=== PATIENT | female | born 1970 | race Caucasian/White ===

== ENCOUNTER → 2016-10-29 | Outpatient (CLI) | payer OTHER ==
[~2016-10-29] MED LIST: AMOXICILLIN500 M2 PO; AUGMENTIN 875 M1 TAB PO; KEFLEX500 MG PO; NAPROSYN500 MG PO; PENICILLIN-VK500 MG PO; VICODIN 5/500 505 MG PO; VICODIN 500 MG-1 TAB PO
--- NOTE | ~2016-10-29 | PF ---
[place], [place] PULMONARY FUNCTION TEST [facility]: [id number] UNIT #: [id number] ROOM: DOCTOR: GAEL PENA MD,TERI BIRTHDATE: [birth year] DOS: 10/30/2016 ORDERED BY: Bethany Carter. HISTORY: The patient noted 45-year-old female, height of 63 inches, weight of 155 pounds, presented for complete pulmonary function testing for assessment of symptoms of dyspnea with exertion and frequent wheezing, nonproductive cough. Active tobacco use noted 1 pack of cigarettes per day for past 30 years. SPIROMETRY: Noted as FVC of 2.51 liters, 72% predicted value. It was noted mildly decreased. No significant changes occurred postbronchodilator test. The FEV1 was noted 1.71 liters, 61% predicted value, moderately decreased with 15% partial improvement occurred postbronchodilator test. The ratio of FEV1/FVC recorded as 68%. The flow volume loop was suggestive of obstructive airway pattern. The lung volumes, thoracic gas volume recorded 98%, residual volume 146%. RV/TLC ratio noted at 151%. Lung volumes suggestive of moderate air trapping secondary to obstructive lung disease. The lung diffusion recorded at 55%, moderately decreased without correction of carbon monoxide and hemoglobin values. The patient's airway resistance and specific conductance were noted normal. FINAL IMPRESSION: The test was noted with findings suggestive of moderate chronic obstructive pulmonary disease with airtrapping. TERI MAYO MD CM:PFREPORT:PULMONARY FUNCTION TEST [id number] TERI PENA MD
== END | disposition home or self-care (01) ==
LOC: CP 12:28
DX: R06.09 Other forms of dyspnea (principal); R10.11 Right upper quadrant pain; R06.2 Wheezing; R05 Cough; Z72.0 Tobacco use

== ENCOUNTER → 2016-11-02 | Outpatient (CLI) | payer OTHER | END | disposition home or self-care (01) | LOC: US 04:07 | DX: Z12.31 Encounter for screening mammogram for malignant neoplasm of breast (principal); K76.0 Fatty (change of) liver, not elsewhere classified; R10.11 Right upper quadrant pain; R06.09 Other forms of dyspnea ==

== ENCOUNTER → 2016-12-06 | Outpatient (CLI) | payer OTHER ==
[2016-12-06 15:16] LABS: BASO % 0.5 % (0.0-1.0); EOS # 0.2 10*3/uL (0.0-0.4); EOS % 2.2 % (1.0-4.0); HEMATOCRIT 36.3 % (37.0-47.0); HEMOGLOBIN 11.1 g/dl (12.0-16.0); LYMPH # 2.7 10*3/uL (1.3-4.4); LYMPH % 34.1 % (27.0-41.0); MEAN CELL VOLUME 80.8 fl (81.0-99.0); MEAN CORPUSCULAR HGB 24.7 pg (27.0-31.0); MEAN CORPUSCULAR HGB CONC 30.6 g/dl (33.0-37.0); MEAN PLATELET VOLUME 9.8 fl (9.6-12.3); MONO # 0.8 10*3/uL (0.1-1.0); MONO % 9.7 % (3.0-9.0); NEUT # 4.2 10*3/uL (2.3-7.9); NEUT % 53.1 % (47.0-73.0); PLATELET COUNT AUTOMATED 250 10*3/uL (130-400); RED BLOOD COUNT 4.49 10*6/uL (4.10-5.10); RED CELL DISTRI WIDTH 17.4 % (0-14.5); WHITE BLOOD COUNT 7.9 10*3/uL (4.8-10.8)
[2016-12-06 15:43] LABS: ALBUMIN 3.5 gm/dl (3.1-4.5); ALKALINE PHOSPHATASE 47 U/L (45-117); BILIRUBIN, TOTAL 0.2 mg/dl (0.2-1.0); BUN 10 mg/dl (7-24); CARBON DIOXIDE 31 mmol/L (21-32); CHLORIDE 106 mmol/L (98-107); EST GLOM FILT AFRICAN AMERICAN > 60 ml/min; FREE T4 0.89 ng/dl (0.76-1.46); GLUCOSE 106 mg/dL (65-99); POTASSIUM 4.1 mmol/L (3.5-5.1); SGOT/AST 11 IU/L (3-35); SGPT/ALT 17 U/L (12-78); SODIUM 141 mmol/L (136-145); TOTAL PROTEIN 6.7 gm/dL (6.4-8.2)
== END | disposition home or self-care (01) ==
LOC: LAB 14:23
PROVIDERS: Psychiatry & Neurology Psychiatry
DX: R53.83 Other fatigue (principal)

== ENCOUNTER 2017-05-24 17:17 | Emergency (ER) | payer OTHER ==
[~2017-05-24] VITALS: Ht 160 cm; Wt 68.0 kg
[2017-05-24 17:37] VITALS: BP 131/73
[2017-05-24 18:28] LABS: BASO % 0.1 % (0.0-1.0); EOS % 0.1 % (1.0-4.0); HEMATOCRIT 36.7 % (37.0-47.0); HEMOGLOBIN 11.9 g/dl (12.0-16.0); LYMPH % 5.6 % (27.0-41.0); MEAN CELL VOLUME 84.2 fl (81.0-99.0); MEAN CORPUSCULAR HGB 27.3 pg (27.0-31.0); MEAN CORPUSCULAR HGB CONC 32.4 g/dl (33.0-37.0); MEAN PLATELET VOLUME 10.3 fl (9.6-12.3); MONO % 5.6 % (3.0-9.0); NEUT # 15.6 10*3/uL (2.3-7.9); PLATELET COUNT AUTOMATED 198 10*3/uL (130-400); RED BLOOD COUNT 4.36 10*6/uL (4.10-5.10); RED CELL DISTRI WIDTH 16.7 % (0-14.5); WHITE BLOOD COUNT 17.8 10*3/uL (4.8-10.8)
[2017-05-24 18:43] LABS: ALBUMIN 3.4 gm/dl (3.1-4.5); ALKALINE PHOSPHATASE 60 U/L (45-117); BUN 5 mg/dl (7-24); CHLORIDE 102 mmol/L (98-107); CREATININE 0.81 mg/dL (0.55-1.02); LIPASE 60 U/L (73-393); POTASSIUM 3.3 mmol/L (3.5-5.1); SGOT/AST 11 IU/L (3-35); SGPT/ALT 17 U/L (12-78); SODIUM 135 mmol/L (136-145); TOTAL PROTEIN 7.3 gm/dL (6.4-8.2)
[2017-05-24] MEDS ORDERED: FLAGYL500 MG PO (20:29)
[2017-05-24] MEDS ORDERED: CIPRO500 MG PO (20:29)
== END 2017-05-24 20:36 | disposition left against medical advice (07) ==
LOC: ED 17:17
PROVIDERS: Physician Assistant
DX: A41.9 Sepsis, unspecified organism (principal); K57.92 Diverticulitis of intestine, part unspecified, without perforation or abscess without bleeding; F17.200 Nicotine dependence, unspecified, uncomplicated; Z88.6 Allergy status to analgesic agent; Z88.8 Allergy status to other drugs, medicaments and biological substances

== ENCOUNTER 2018-05-17 14:19 | Emergency (ER) | payer OTHER ==
[~2018-05-17] VITALS: Ht 160 cm; Wt 75.7 kg
[~2018-05-17 14:19] MED LIST changes: +CIPRO500 MG PO; +FLAGYL500 MG PO
[2018-05-17 14:23] VITALS: BP 150/72
[2018-05-17] MEDS ORDERED: PREDNISONE10 MG PO (14:31)
== END 2018-05-17 14:51 | disposition home or self-care (01) ==
LOC: ED 14:19
DX: M77.8 Other enthesopathies, not elsewhere classified (principal); R03.0 Elevated blood-pressure reading, without diagnosis of hypertension; Z88.6 Allergy status to analgesic agent; Z88.8 Allergy status to other drugs, medicaments and biological substances; Z98.890 Other specified postprocedural states; Z98.51 Tubal ligation status

== ENCOUNTER 2020-01-12 09:05 | Observation (INO) | payer OTHER ==
[~2020-01-12] VITALS: Ht 160 cm; Wt 69.0 kg
[~2020-01-12 09:05] MED LIST changes: +PREDNISONE10 MG PO
[2020-01-12 09:11] VITALS: BP 152/82
--- NOTE | 2020-01-12 09:31 | NUR ---
THE PATIENT WAS GIVEN A SPECIMAN CUP FOR A URINE
--- NOTE | 2020-01-12 09:40 | NUR ---
IV RAC INFILTRATE. DC'D AND STARTED ONE IN LAC.
[2020-01-12 09:47] LABS: BASO # 0.1 10*3/uL (0.0-0.1); BASO % 0.6 % (0.0-1.0); EOS # 0.1 10*3/uL (0.0-0.4); HEMATOCRIT 40.7 % (37.0-47.0); LYMPH # 1.4 10*3/uL (1.3-4.4); LYMPH % 11.7 % (27.0-41.0); MEAN CELL VOLUME 82.6 fl (81.0-99.0); MEAN CORPUSCULAR HGB 25.8 pg (27.0-31.0); MEAN CORPUSCULAR HGB CONC 31.2 g/dl (33.0-37.0); MEAN PLATELET VOLUME 9.9 fl (9.6-12.3); MONO # 0.7 10*3/uL (0.1-1.0); MONO % 5.8 % (3.0-9.0); NEUT # 9.3 10*3/uL (2.3-7.9); NEUT % 80.5 % (47.0-73.0); PLATELET COUNT AUTOMATED 221 10*3/uL (130-400); RED BLOOD COUNT 4.93 10*6/uL (4.10-5.10); RED CELL DISTRI WIDTH 18.5 % (0-14.5); WHITE BLOOD COUNT 11.6 10*3/uL (4.8-10.8)
[2020-01-12 09:58] LABS: ACT PARTIAL THROMBO TIME 27.1 SECONDS (20.0-32.1); INTERNATIONAL NORM RATIO 0.9 (2.0-3.5)
[2020-01-12 10:05] LABS: ALBUMIN 3.7 gm/dl (3.1-4.5); BUN 13 mg/dl (7-24); CHLORIDE 107 mmol/L (98-107); LIPASE 60 U/L (73-393); POTASSIUM 3.6 mmol/L (3.5-5.1); SGOT/AST 11 IU/L (3-35); SGPT/ALT 20 U/L (12-78); SODIUM 140 mmol/L (136-145); TOTAL PROTEIN 7.2 gm/dL (6.4-8.2)
[2020-01-12 10:06] LABS: ALKALINE PHOSPHATASE 42 U/L (45-117)
[2020-01-12 10:16] LABS: TROPONIN I < 0.015 ng/ml (<0.045)
[2020-01-12 10:32] LABS: BILIRUBIN NEGATIVE (NEGATIVE); BLOOD NEGATIVE (NEGATIVE); CLARITY CLEAR (CLEAR); COLOR YELLOW (YELLOW); GLUCOSE NEGATIVE (NEGATIVE); KETONE 2+ (NEGATIVE); SPECIFIC GRAVITY 1.015 (1.005-1.030)
[2020-01-12 10:33] LABS: BACTERIA 2+; LEUKO ESTERASE NEGATIVE (NEGATIVE); MUCOUS TRACE; NITRITE NEGATIVE (NEGATIVE); UROBILINOGEN 0.2 E.U./dl (0.2-1.0)
--- NOTE | 2020-01-12 10:34 | NUR ---
THE PT WENT TO CT VIA CART
[2020-01-12 10:58] VITALS: BP 133/63
--- NOTE | 2020-01-12 11:25 | NUR ---
THIS NURSE ADJUSTED THE PATIENTS BED. NO NEW VOICED C/O. THE CALL LIGHT IS ATTACHED TO THE BED BESIDE THE PATIENT
--- NOTE | 2020-01-12 11:48 | NUR ---
I LET THE PATIENT KNOW THAT HER RESULTS ARE BACK AND THAT HER CAREGIVER WILL BE IN TO TALK WITH HER SOON. VERBAL UNDERSTANDING NOTED
[2020-01-12 12:17] VITALS: BP 141/76
[2020-01-12 13:29] VITALS: BP 117/67
[2020-01-12 16:00] VITALS: BP 126/67
--- NOTE | 2020-01-12 16:42 | NUR ---
Time: 1300 A 49 year old FEMALE admitted to 5E under services of [place] DO. Pt. arrived via wheel chair from ER. Chief complaint: ABDOMINAL PAIN. PT CAME TO THE UNIT WITH ONLY COMPLAINTS OF ABDOMINAL TENDERNESS AND WANTING TO HAVING SOMETHING TO DRINK. PT'S MEDICATION REQ WAS COMPLETED AND UP TO DATE. PT HAD NO WOUNDS AND NO OTHER COMPLAINTS AT THIS TIME. INITIAL ASSESSMENT WAS COMPLETED. ADMISSION ORDERS WERE ALREADY PLACED AND I DID NOT HAVE TO CALL THE ATTENDING PHYSICIAN TO OBTAIN ANY NEW ORDERS. ANN LOPEZ
[2020-01-12 20:00] VITALS: BP 134/69
--- NOTE | 2020-01-12 20:00 | NUR ---
MEDICATED WITH A GI COCKTAIL PER PT'S REQUEST FOR SOMETHING TO COAT HER STOMACH & M.D. ORDERS. IV FLUIDS INFUSING ORDERED. CALL LIGHT WITHIN REACH.
--- NOTE | 2020-01-12 21:00 | NUR ---
STATES GI COCKTAIL DID NOT HELP. HAD EMESIS.
--- NOTE | 2020-01-12 22:48 | NUR ---
MEDICATED WITH ZOFRAN FOR NAUSEA/VOMITING.
--- NOTE | 2020-01-12 23:54 | NUR ---
PATIENT IS AAOX3. ASSESSMENT IS COMPLETE WITH EASY AND REGULAR RESPERS ON ROOM AIR. PATIENT C/O SEVERE ABDOMINAL PAIN AND NAUSEA. PRN ZOFRAN NOT DUE YET, PRN MORPHINE GIVEN. PATIENT HAD EMESIS IN TRASH CAN WITH A RED COLOR. "PATIENT STATES ONLY THING ON MY STOMACH IS RED JELLO AND WATER, THEY HAVE ME ON THAT CLEAR LIQUID DIET." WILL CONTINUE TO MONITOR, SEE INTERVENTION SCREEN.
[2020-01-13] VITALS: BP 142/70
--- NOTE | 2020-01-13 00:07 | NUR ---
PRN MORPHINE EFFECTIVE, PATIENT APPEARS TO BE SLEEPING WITH EASY AND REGULAR RESPERS ON ROOM AIR. CALL LIGHT IS WITHIN REACH.
--- NOTE | 2020-01-13 00:12 | NUR ---
SPOKE WITH DR. DOMINIQUE ABOUT PATIENT EMESIS REQUESTED INCREASE OF ZOFRAN FREQUENCY. SEE NEW ORDERS.
--- NOTE | 2020-01-13 02:59 | NUR ---
CHART CHECK COMPLETE.
--- NOTE | 2020-01-13 03:24 | NUR ---
PATIENT PUT DUMPCART DRIVER LIGHT BY MISTAKE. PATIENT STATES "I HAVE FELT BETTER THAN I HAVE IN A WHILE. IM GOING TO TRY AND GET SOME MORE SLEEP." BED IS LOW, LOCKED, AND CALL LIGHT IS WITHIN REACH.
--- NOTE | 2020-01-13 05:43 | NUR ---
PRN ZOFRAN GIVEN PER ORDER. CALL LIGHT IS WITHIN REACH, WILL MONITOR EFFECT.
[2020-01-13 06:44] LABS: BASO % 0.4 % (0.0-1.0); EOS # 0.1 10*3/uL (0.0-0.4); EOS % 0.6 % (1.0-4.0); HEMATOCRIT 34.2 % (37.0-47.0); LYMPH # 1.8 10*3/uL (1.3-4.4); LYMPH % 21.7 % (27.0-41.0); MEAN CELL VOLUME 82.4 fl (81.0-99.0); MEAN CORPUSCULAR HGB 25.5 pg (27.0-31.0); MONO # 0.6 10*3/uL (0.1-1.0); NEUT # 5.7 10*3/uL (2.3-7.9); NEUT % 69.9 % (47.0-73.0); PLATELET COUNT AUTOMATED 192 10*3/uL (130-400); RED BLOOD COUNT 4.15 10*6/uL (4.10-5.10); RED CELL DISTRI WIDTH 18.3 % (0-14.5); WHITE BLOOD COUNT 8.2 10*3/uL (4.8-10.8)
[2020-01-13 07:21] LABS: CHLORIDE 109 mmol/L (98-107); POTASSIUM 3.4 mmol/L (3.5-5.1); SODIUM 139 mmol/L (136-145)
--- NOTE | 2020-01-13 07:27 | NUR ---
24 HR chart check completed.
[2020-01-13 07:35] LABS: ALBUMIN 2.9 gm/dl (3.1-4.5); ALKALINE PHOSPHATASE 37 U/L (45-117); BUN 5 mg/dl (7-24); CHOLESTEROL 109 mg/dL (<200); CREATININE 0.55 mg/dL (0.55-1.02); FREE T4 1.01 ng/dl (0.76-1.46); HDL CHOLESTEROL 58 mg/dl (40-60); LDL CHOLESTEROL 38 mg/dL (9-159); SGOT/AST 9 IU/L (3-35); SGPT/ALT 17 U/L (12-78); TOTAL PROTEIN 5.7 gm/dL (6.4-8.2); TRIGLYCERIDES 64 mg/dl (<150); VLDL CHOLESTEROL 13 mg/dL (6-40)
[2020-01-13 08:00] VITALS: BP 118/64; BP 146/84
[2020-01-13 08:58] LABS: VITAMIN D, 25-HYDROXY 27.2 ng/mL (30-100)
--- NOTE | 2020-01-13 09:00 | NUR ---
Integrated Marketing Manager in to talk to patient. Patient states lives at home with margarita and daughter. There are no steps in the home. Physician: none at present [facility]: none Patient's level of ADLs: INDEPENDENT Patient has working utilities: all working DME: none Follow-up physician's appointment after d/c: will be made by hospitalist nurse director up discharge with resident clinic Does patient want to access PORTAL?: no Discharge plan discussed with patient, she states she lives at home with margarita and daughter, she is independent in adls and ambulation, she is currently laid off from her job, she drives, she stated she will return home when discharged. discussed with her not having a regular doctor and she stated she would like an appointment with the resident clinic, educated her this will be made by hospitalist nurse director upon discharge, she states when discharged her fironal will transport her home, patient denies any home needs at this time. SHERI MCPHERSON
[2020-01-13] MEDS ORDERED: NICOTINE PATCH1 EAC2 TD (11:08)
[2020-01-13] MEDS ORDERED: PROTONIX TR40 M1 PO (11:08)
[2020-01-13 12:00] VITALS: BP 108/67
--- NOTE | 2020-01-13 12:41 | NUR ---
Discharge instructions reviewed with patient/family. Patient receptive and verbalizes understanding. Follow-up care arranged. Written instructions given to patient/family. PT WAS MEDSURG. IV WAS REMOVED. ANN LOPEZ
== END 2020-01-13 12:41 | disposition home or self-care (01) ==
LOC: ED 09:05 → EDHOLD 11:59 → 5E 11:59
PROVIDERS: Nurse Practitioner Family; Registered Nurse; ADMIT Internal Medicine
DX: A08.4 Viral intestinal infection, unspecified (principal); K52.9 Noninfective gastroenteritis and colitis, unspecified; B34.9 Viral infection, unspecified; D72.829 Elevated white blood cell count, unspecified; R11.2 Nausea with vomiting, unspecified; Z23 Encounter for immunization

== ENCOUNTER → 2020-07-28 | Outpatient (CLI) | payer OTHER ==
[~2020-07-28] MED LIST changes: +NICOTINE PATCH1 EAC2 TD; +PROTONIX TR40 M1 PO
== END | disposition home or self-care (01) ==
LOC: COVID19 10:31
PROVIDERS: ATTEND Hospitalist
DX: U07.1 COVID-19 (principal)

== ENCOUNTER 2020-08-17 13:53 | Emergency (ER) | payer OTHER ==
[~2020-08-17] VITALS: Wt 68.0 kg
[2020-08-17 14:08] VITALS: BP 149/70
[2020-08-17 14:31] LABS: BASO # 0.1 10*3/uL (0.0-0.1); EOS # 0.2 10*3/uL (0.0-0.4); HEMATOCRIT 35.7 % (37.0-47.0); LYMPH # 1.9 10*3/uL (1.3-4.4); LYMPH % 37.1 % (27.0-41.0); MEAN CELL VOLUME 82.1 fl (81.0-99.0); MEAN CORPUSCULAR HGB 25.3 pg (27.0-31.0); MEAN CORPUSCULAR HGB CONC 30.8 g/dl (33.0-37.0); MEAN PLATELET VOLUME 9.3 fl (9.6-12.3); MONO # 0.6 10*3/uL (0.1-1.0); MONO % 12.6 % (3.0-9.0); NEUT # 2.3 10*3/uL (2.3-7.9); NEUT % 46.3 % (47.0-73.0); PLATELET COUNT AUTOMATED 242 10*3/uL (130-400); RED BLOOD COUNT 4.35 10*6/uL (4.10-5.10)
[2020-08-17 14:43] LABS: ACT PARTIAL THROMBO TIME 26.8 SECONDS (20.0-32.1); INTERNATIONAL NORM RATIO 0.9 (2.0-3.5)
[2020-08-17 14:56] LABS: ALBUMIN 3.6 gm/dl (3.1-4.5); ALKALINE PHOSPHATASE 53 U/L (45-117); BUN 10 mg/dl (7-24); CHLORIDE 107 mmol/L (98-107); CREATININE 0.77 mg/dL (0.55-1.02); LIPASE 91 U/L (73-393); POTASSIUM 3.7 mmol/L (3.5-5.1); SGOT/AST 11 IU/L (3-35); SGPT/ALT 21 U/L (12-78); SODIUM 138 mmol/L (136-145); TOTAL PROTEIN 7.2 gm/dL (6.4-8.2)
[2020-08-17 14:58] LABS: TROPONIN I < 0.015 ng/ml (<0.045)
[2020-08-17] MEDS ORDERED: PREDNISONE50 MG PO (17:15)
== END 2020-08-17 17:20 | disposition home or self-care (01) ==
LOC: ED 13:53
PROVIDERS: Emergency Medicine
DX: J44.1 Chronic obstructive pulmonary disease with (acute) exacerbation (principal); Z88.6 Allergy status to analgesic agent; Z88.8 Allergy status to other drugs, medicaments and biological substances

== ENCOUNTER 2021-03-24 11:57 | Emergency (ER) | payer OTHER ==
[~2021-03-24] VITALS: Ht 160 cm; Wt 61.2 kg
[~2021-03-24 11:57] MED LIST changes: +PREDNISONE50 MG PO
[2021-03-24 12:03] VITALS: BP 132/71
[2021-03-24] MEDS ORDERED: HYDROCODONE-AC1 EAC1 PO (12:17)
[2021-03-24] MEDS ORDERED: AUGMENTIN 875875 MG PO (12:17)
== END 2021-03-24 12:21 | disposition home or self-care (01) ==
LOC: ED 11:57
DX: K04.7 Periapical abscess without sinus (principal); Z88.6 Allergy status to analgesic agent

== ENCOUNTER → 2022-11-20 | Outpatient (CLI) | payer OTHER ==
[~2022-11-20] MED LIST changes: +AUGMENTIN 875875 MG PO; +HYDROCODONE-AC1 EAC1 PO
== END | disposition home or self-care (01) ==
LOC: MAMMO 00:30
PROVIDERS: ATTEND Internal Medicine
DX: Z12.31 Encounter for screening mammogram for malignant neoplasm of breast (principal)

== ENCOUNTER → 2023-12-31 | Outpatient (CLI) | payer OTHER | LOC: MAMMO 11-25 01:13 | PROVIDERS: ATTEND Internal Medicine | DX: Z12.31 Encounter for screening mammogram for malignant neoplasm of breast (principal) ==

== ENCOUNTER 2024-10-05 16:15 | Emergency (ER) | payer OTHER ==
[~2024-10-05] VITALS: Wt 59.0 kg
[2024-10-05 16:28] VITALS: BP 126/72
[2024-10-05] MEDS ORDERED: CYCLOBENZAPRINE5 M3 PO (16:40)
[2024-10-05] MEDS ORDERED: NAPROSYN500 MG PO (16:40)
[2024-10-05] MEDS ORDERED: PREDNISONE50 MG PO (16:40)
[2024-10-05] MEDS ORDERED: methylPREDNISolone sod succ 125 MG VIAL IM ONE (16:45)
[2024-10-05] MEDS ORDERED: Ketorolac Tromethamine 30 MG/ML VIAL IM ONE (16:45)
== END 2024-10-05 17:05 | disposition home or self-care (01) ==
LOC: ED 16:15
DX: M54.42 Lumbago with sciatica, left side (principal); J44.9 Chronic obstructive pulmonary disease, unspecified; F90.9 Attention-deficit hyperactivity disorder, unspecified type; Z86.16 Personal history of COVID-19; Z72.0 Tobacco use; Z88.6 Allergy status to analgesic agent; Z88.5 Allergy status to narcotic agent; Z88.8 Allergy status to other drugs, medicaments and biological substances; Z98.890 Other specified postprocedural states

== ENCOUNTER 2024-10-07 12:47 | Emergency (ER) | payer OTHER ==
[~2024-10-07] VITALS: Wt 59.0 kg
[~2024-10-07 12:47] MED LIST changes: +CYCLOBENZAPRINE5 M3 PO
[2024-10-07 12:55] VITALS: BP 129/68
[2024-10-07] MEDS ORDERED: Ketorolac Tromethamine 15 MG/ML VIAL IM ONE (13:20)
[2024-10-07] MEDS ORDERED: HYDROCODONE-AC1 EAC1 PO (14:55)
== END 2024-10-07 15:13 | disposition home or self-care (01) ==
LOC: ED 12:47
DX: S39.012A Strain of muscle, fascia and tendon of lower back, initial encounter (principal); Z79.899 Other long term (current) drug therapy; Z88.6 Allergy status to analgesic agent; Z88.8 Allergy status to other drugs, medicaments and biological substances; Z98.890 Other specified postprocedural states; X58.XXXA Exposure to other specified factors, initial encounter; Y93.89 Activity, other specified; Y92.89 Other specified places as the place of occurrence of the external cause; Y99.8 Other external cause status

== ENCOUNTER → 2024-10-27 | Outpatient (CLI) | payer OTHER | END | disposition home or self-care (01) | LOC: RAD 15:33 | PROVIDERS: ATTEND Family Medicine | DX: M25.562 Pain in left knee (principal); M19.90 Unspecified osteoarthritis, unspecified site ==

== ENCOUNTER 2024-11-16 16:14 | Emergency (ER) | payer OTHER ==
[~2024-11-16] VITALS: Ht 160 cm; Wt 59.0 kg
[2024-11-16 16:34] VITALS: BP 129/88
[2024-11-16] MEDS ORDERED: methylPREDNISolone acetate 40 MG/ML VIAL IM ONE (16:45)
[2024-11-16] MEDS ORDERED: Ketorolac Tromethamine 30 MG/ML VIAL IM ONE (16:45)
[2024-11-16] MEDS ORDERED: Acetaminophen/Hydrocodone 5 MG/325 MG TABLET PO ONE (20:05)
[2024-11-16] MEDS ORDERED: HYDROCODONE-AC1 EAC1 PO (20:06)
== END 2024-11-16 20:14 | disposition home or self-care (01) ==
LOC: ED 16:14
DX: M71.22 Synovial cyst of popliteal space [Baker], left knee (principal); Z88.6 Allergy status to analgesic agent; Z79.899 Other long term (current) drug therapy; Z98.890 Other specified postprocedural states

== ENCOUNTER → 2024-11-26 | Outpatient (CLI) | payer OTHER | END | disposition home or self-care (01) | LOC: MRI 00:49 | PROVIDERS: ATTEND Orthopaedic Surgery | DX: S83.242A Other tear of medial meniscus, current injury, left knee, initial encounter (principal); M71.22 Synovial cyst of popliteal space [Baker], left knee; M25.562 Pain in left knee; M87.00 Idiopathic aseptic necrosis of unspecified bone; M79.89 Other specified soft tissue disorders; X58.XXXA Exposure to other specified factors, initial encounter; Y93.89 Activity, other specified; Y92.89 Other specified places as the place of occurrence of the external cause; Y99.8 Other external cause status ==

== ENCOUNTER → 2024-12-14 | Outpatient (CLI) | payer OTHER | END | disposition home or self-care (01) | LOC: CT 15:00 | PROVIDERS: ATTEND Orthopaedic Surgery | DX: S83.242A Other tear of medial meniscus, current injury, left knee, initial encounter (principal); M17.12 Unilateral primary osteoarthritis, left knee; M71.22 Synovial cyst of popliteal space [Baker], left knee; M23.42 Loose body in knee, left knee; X58.XXXA Exposure to other specified factors, initial encounter; Y93.89 Activity, other specified; Y92.89 Other specified places as the place of occurrence of the external cause; Y99.8 Other external cause status ==

== ENCOUNTER → 2024-12-23 | Outpatient (CLI) | payer OTHER | END | disposition home or self-care (01) | LOC: ORTHO 13:57 → RAD 13:57 | PROVIDERS: ATTEND Orthopaedic Surgery | DX: M17.12 Unilateral primary osteoarthritis, left knee (principal); M23.42 Loose body in knee, left knee; M70.42 Prepatellar bursitis, left knee ==

== ENCOUNTER → 2025-01-30 | Outpatient (CLI) | payer OTHER ==
[~2025-01-30] VITALS: Ht 160 cm; Wt 64.0 kg
[~2025-01-30] MED LIST changes: +ACETAMINOPHEN 100 ML IV ONE; +ADDERALL 30 MG30 MG PO; +Dexamethasone Sodium Phospha 4 MG/ML VIAL IV ONE; +IBU800 M2 PO; +Lactated Ringer's Solution 1,000 ML IV ONE; +Midazolam Hydrochloride 2 MG/2 ML VIAL IV ONE; +NICODERM CQ1 EAC2 T; +OXYCODONE-ACET1 EAC3 PO; +Ondansetron Hydrochloride 4 MG/2 ML VIAL IV ONE; +PROPOFOL 200 MG/20 ML VIAL IV ONE; +Ropivacaine Hydrochloride 5 MG/ML 20 ML AMP IJ ONE; +TRAMADOL HCL50 MG PO; +TRANEXAMIC ACID IN NACL,ISO-OS 100 ML IV ONE; +VITAMIN D350 MCG PO; +ceFAZolin sodium/sodium chlor 20 ML IV ONE
[2025-01-30 11:12] LABS: BILIRUBIN Negative (Negative); BLOOD Negative (Negative); CLARITY Clear (Clear); COLOR Yellow (Yellow); KETONE Negative (Negative); LEUKO ESTERASE Negative (Negative); NITRITE Negative (Negative); PH 6.0 (4.5-8.0); SPECIFIC GRAVITY <= 1.005 (1.001-1.030); UROBILINOGEN 0.2 E.U./dl (0.0-1.0)
[2025-01-30 11:24] LABS: ACT PARTIAL THROMBO TIME 27.6 SECONDS (20.0-32.1)
[2025-01-30 11:27] LABS: EPITHELIAL CELLS 0-2
[2025-01-30 11:36] LABS: BUN 9 mg/dl (9-23); SGPT/ALT 14 U/L (5-49)
[2025-02-09] VITALS (7 sets, daily range): BP systolic 115–155; BP diastolic 68–79
== END ==
LOC: SDC 01-01 09:30 → LAB 03:00 → SDC 02-01 08:45 → LAB 02-02 04:03 → SDC 02-02 08:30 → EDSTATUS 02-02 08:45 → SDC 02-02 08:45
PROVIDERS: ATTEND Orthopaedic Surgery
DX: M17.12 Unilateral primary osteoarthritis, left knee (principal); J44.9 Chronic obstructive pulmonary disease, unspecified; F17.210 Nicotine dependence, cigarettes, uncomplicated; Z20.822 Contact with and (suspected) exposure to COVID-19; Z79.01 Long term (current) use of anticoagulants; Z53.8 Procedure and treatment not carried out for other reasons

== ENCOUNTER 2025-02-09 08:15 | Inpatient (IN) | payer OTHER ==
[~2025-02-09] VITALS: Ht 160 cm; Wt 66.7 kg
[~2025-02-09 08:15] MED LIST changes: -ACETAMINOPHEN 100 ML IV ONE; -ADDERALL 30 MG30 MG PO; -Dexamethasone Sodium Phospha 4 MG/ML VIAL IV ONE; -Lactated Ringer's Solution 1,000 ML IV ONE; -Midazolam Hydrochloride 2 MG/2 ML VIAL IV ONE; -NICODERM CQ1 EAC2 T; -OXYCODONE-ACET1 EAC3 PO; -Ondansetron Hydrochloride 4 MG/2 ML VIAL IV ONE; -PROPOFOL 200 MG/20 ML VIAL IV ONE; -Ropivacaine Hydrochloride 5 MG/ML 20 ML AMP IJ ONE; -TRANEXAMIC ACID IN NACL,ISO-OS 100 ML IV ONE; -VITAMIN D350 MCG PO; -ceFAZolin sodium/sodium chlor 20 ML IV ONE
[2025-02-09] MEDS ORDERED: ceFAZolin sodium/sodium chlor 0 ML IV ONE (12:05)
[2025-02-09] MEDS ORDERED: TRANEXAMIC ACID IN NACL,ISO-OS 0 ML IV ONE (12:05)
[2025-02-09] MEDS ORDERED: Lactated Ringer's Solution 0 ML IV ONE (12:05)
[2025-02-09] MEDS ORDERED: Bupivacaine Hydrochloride/Ep2 30 ML VIAL ONE (12:20)
[2025-02-09] MEDS ORDERED: Ondansetron Hydrochloride 4 MG/2 ML VIAL IV PRN (12:25)
[2025-02-09] MEDS ORDERED: Acetaminophen/Hydrocodone 5 MG/325 MG TABLET PO PRN ×2 (12:35→16:40)
[2025-02-09] MEDS ORDERED: ceFAZolin sodium 1 GM in SYRINGE INFUSION 10 ML IV SCH (14:00)
[2025-02-09] MEDS ORDERED: BISACODYL 10 MG SUPP R PRN (16:40)
[2025-02-09] MEDS ORDERED: ADDERALL 30 MG30 MG PO (16:40)
[2025-02-09] MEDS ORDERED: BISACODYL 5 MG TAB PO PRN (16:40)
[2025-02-09 16:45] VITALS: BP 151/70
[2025-02-09 19:29] LABS: MEAN CELL VOLUME 96.8 fl (81.0-99.0); MEAN CORPUSCULAR HGB 32.1 pg (27.0-31.0); MEAN PLATELET VOLUME 9.9 fl (9.6-12.3); NUCLEATED RED BLOOD CELL 0.0 % (0.0-0.0); NUCLEATED RED BLOOD CELL 0.0 10*3/uL (0.0-0.0); PLATELET COUNT AUTOMATED 191 10*3/uL (130-400); RED CELL DISTRI WIDTH 13.0 % (0-14.5)
[2025-02-09 19:33] LABS: MANUAL DIFF REFLEX YES
[2025-02-09 20:00] VITALS: BP 171/80
[2025-02-09 20:02] LABS: BASOPHILS 1 % (0-1); PLATELET SUFFICIENCY NORMAL (NORMAL)
[2025-02-09 20:46] VITALS: BP 148/68
[2025-02-09 22:16] VITALS: BP 134/62
[2025-02-10] VITALS: BP 137/75
[2025-02-10 06:07] LABS: BASO # 0.0 10*3/uL (0.0-0.1); BASO % 0.1 % (0.0-1.0); EOS # 0.0 10*3/uL (0.0-0.4); EOS % 0.0 % (1.0-4.0); MEAN CELL VOLUME 97.5 fl (81.0-99.0); MEAN CORPUSCULAR HGB 32.3 pg (27.0-31.0); MEAN PLATELET VOLUME 10.0 fl (9.6-12.3); MONO # 1.0 10*3/uL (0.1-1.0); MONO % 6.7 % (3.0-9.0); NEUT # 13.0 10*3/uL (2.3-7.9); NEUT % 85.9 % (47.0-73.0); NUCLEATED RED BLOOD CELL 0.0 % (0.0-0.0); NUCLEATED RED BLOOD CELL 0.0 10*3/uL (0.0-0.0); PLATELET COUNT AUTOMATED 192 10*3/uL (130-400); RED CELL DISTRI WIDTH 12.8 % (0-14.5)
[2025-02-10 06:26] LABS: ACT PARTIAL THROMBO TIME 26.4 SECONDS (20.0-32.1)
[2025-02-10 06:48] LABS: VITAMIN D, 25-HYDROXY 32.3 ng/mL (30-100)
[2025-02-10 07:27] LABS: BUN 10 mg/dl (9-23); FREE T4 1.20 ng/dl (0.89-1.76); LDL CHOLESTEROL 64 mg/dL (9-159); SGPT/ALT 23 U/L (5-49)
[2025-02-10 08:00] VITALS: BP 142/98
[2025-02-10] MEDS ORDERED: Cholecalciferol 2,000 UNIT TABLET (50 MCG) PO SCH (10:00)
[2025-02-10] MEDS ORDERED: DOCUSATE SODIUM 100 MG CAP PO SCH (10:00)
[2025-02-10 12:00] VITALS: BP 176/80
[2025-02-10] MEDS ORDERED: Acetaminophen/Oxycodone 5 MG/325 MG TABLET PO SCH ×2 (13:35→18:00)
[2025-02-10 16:00] VITALS: BP 154/87
[2025-02-10] MEDS ORDERED: ASPIRIN ENTERIC COATED 81 MG TAB PO SCH (18:00)
[2025-02-10 20:00] VITALS: BP 155/82
[2025-02-11] VITALS: BP 155/78
[2025-02-11 05:53] LABS: BUN 7 mg/dl (9-23)
[2025-02-11 06:14] LABS: BASO # 0.0 10*3/uL (0.0-0.1); BASO % 0.3 % (0.0-1.0); EOS # 0.1 10*3/uL (0.0-0.4); EOS % 0.6 % (1.0-4.0); MEAN CELL VOLUME 97.4 fl (81.0-99.0); MEAN CORPUSCULAR HGB 32.4 pg (27.0-31.0); MEAN PLATELET VOLUME 10.2 fl (9.6-12.3); MONO # 0.9 10*3/uL (0.1-1.0); MONO % 8.2 % (3.0-9.0); NEUT # 8.1 10*3/uL (2.3-7.9); NEUT % 75.1 % (47.0-73.0); NUCLEATED RED BLOOD CELL 0.0 % (0.0-0.0); NUCLEATED RED BLOOD CELL 0.0 10*3/uL (0.0-0.0); PLATELET COUNT AUTOMATED 165 10*3/uL (130-400); RED CELL DISTRI WIDTH 13.2 % (0-14.5)
[2025-02-11 08:00] VITALS: BP 162/73
[2025-02-11 12:00] VITALS: BP 129/70
[2025-02-11 16:00] VITALS: BP 136/69
[2025-02-11 20:00] VITALS: BP 136/76
[2025-02-12] VITALS: BP 125/75
[2025-02-12 06:16] LABS: BASO # 0.0 10*3/uL (0.0-0.1); BASO % 0.5 % (0.0-1.0); EOS # 0.2 10*3/uL (0.0-0.4); EOS % 2.2 % (1.0-4.0); MEAN CELL VOLUME 96.6 fl (81.0-99.0); MEAN CORPUSCULAR HGB 32.0 pg (27.0-31.0); MEAN PLATELET VOLUME 10.9 fl (9.6-12.3); MONO # 0.8 10*3/uL (0.1-1.0); MONO % 9.5 % (3.0-9.0); NEUT # 5.2 10*3/uL (2.3-7.9); NEUT % 61.1 % (47.0-73.0); NUCLEATED RED BLOOD CELL 0.0 % (0.0-0.0); NUCLEATED RED BLOOD CELL 0.0 10*3/uL (0.0-0.0); PLATELET COUNT AUTOMATED 169 10*3/uL (130-400); RED CELL DISTRI WIDTH 13.2 % (0-14.5)
[2025-02-12 06:32] LABS: BUN 8 mg/dl (9-23)
[2025-02-12 08:00] VITALS: BP 138/75
[2025-02-12 12:00] VITALS: BP 140/76
[2025-02-12] MEDS ORDERED: VITAMIN D350 MCG PO (12:24)
[2025-02-12] MEDS ORDERED: OXYCODONE-ACET1 EAC3 PO ×2 (12:24→13:17)
[2025-02-12] MEDS ORDERED: NICODERM CQ1 EAC2 T (14:05)
== END 2025-02-12 14:31 | disposition home or self-care (01) | DRG 470 ==
LOC: SDC 08:15 → 4E 11:21 → SDC 11:30 → 4E 02-12 14:31
PROVIDERS: Student in an Organized Health Care Education/Training Program; ADMIT Internal Medicine; ATTEND Internal Medicine
PROC: 0SRD0JZ Replacement of Left Knee Joint with Synthetic Substitute, Open Approach (ICD-10-PCS; principal; 2025-02-09)
PROC: 3E0T3BZ Introduction of Anesthetic Agent into Peripheral Nerves and Plexi, Percutaneous Approach (ICD-10-PCS; 2025-02-09)
DX: M17.12 Unilateral primary osteoarthritis, left knee (principal); F17.210 Nicotine dependence, cigarettes, uncomplicated; J44.9 Chronic obstructive pulmonary disease, unspecified; D72.829 Elevated white blood cell count, unspecified; R73.9 Hyperglycemia, unspecified; F90.9 Attention-deficit hyperactivity disorder, unspecified type; Z88.8 Allergy status to other drugs, medicaments and biological substances; Z91.09 Other allergy status, other than to drugs and biological substances; Z98.891 History of uterine scar from previous surgery; Z84.89 Family history of other specified conditions; Z79.899 Other long term (current) drug therapy; Z79.01 Long term (current) use of anticoagulants; Z79.2 Long term (current) use of antibiotics; Z71.6 Tobacco abuse counseling

== ENCOUNTER → 2025-02-22 | Outpatient (CLI) | payer OTHER ==
[~2025-02-22] MED LIST changes: +ADDERALL 30 MG30 MG PO; +NICODERM CQ1 EAC2 T; +OXYCODONE-ACET1 EAC3 PO; +VITAMIN D350 MCG PO
== END | disposition home or self-care (01) ==
LOC: ORTHO 01:46
PROVIDERS: ATTEND Orthopaedic Surgery
DX: Z47.1 Aftercare following joint replacement surgery (principal)

== ENCOUNTER 2025-03-13 11:01 | Emergency (ER) | payer OTHER ==
[~2025-03-13] VITALS: Ht 160 cm; Wt 63.5 kg
[2025-03-13 11:09] VITALS: BP 149/94
[2025-03-13] MEDS ORDERED: Motrin,Rufen800 MG PO (13:01)
== END 2025-03-13 13:13 | disposition home or self-care (01) ==
LOC: ED 11:01
DX: S86.912A Strain of unspecified muscle(s) and tendon(s) at lower leg level, left leg, initial encounter (principal); G89.18 Other acute postprocedural pain; J44.9 Chronic obstructive pulmonary disease, unspecified; F90.9 Attention-deficit hyperactivity disorder, unspecified type; F17.210 Nicotine dependence, cigarettes, uncomplicated; Z88.6 Allergy status to analgesic agent; Z79.899 Other long term (current) drug therapy; Z98.890 Other specified postprocedural states; X58.XXXA Exposure to other specified factors, initial encounter; Y93.89 Activity, other specified; Y92.89 Other specified places as the place of occurrence of the external cause; Y99.8 Other external cause status

== ENCOUNTER → 2025-03-22 | Outpatient (CLI) | payer OTHER ==
[~2025-03-22] MED LIST changes: +Motrin,Rufen800 MG PO
== END ==
LOC: ORTHO 01:11
PROVIDERS: ATTEND Orthopaedic Surgery
DX: Z47.1 Aftercare following joint replacement surgery (principal)

== ENCOUNTER → 2025-05-03 | Outpatient (CLI) | payer OTHER | END | disposition home or self-care (01) | LOC: ORTHO 02:05 | PROVIDERS: ATTEND Orthopaedic Surgery | DX: Z47.1 Aftercare following joint replacement surgery (principal) ==

== ENCOUNTER 2025-05-15 13:56 | Emergency (ER) | payer OTHER ==
[~2025-05-15] VITALS: Ht 160 cm; Wt 68.0 kg
[2025-05-15 14:04] VITALS: BP 135/74
[2025-05-15] MEDS ORDERED: Amoxicillin/Clavulanate Pota 875 MG TAB PO ONE (14:25)
[2025-05-15] MEDS ORDERED: Acetaminophen/Hydrocodone 5 MG/325 MG TABLET PO ONE (14:25)
[2025-05-15] MEDS ORDERED: HYDROCODONE-AC1 EAC1 PO (14:31)
[2025-05-15] MEDS ORDERED: AMOX-CLAV 875-1 EACH PO (14:31)
== END 2025-05-15 14:38 | disposition home or self-care (01) ==
LOC: ED 13:56
DX: K04.7 Periapical abscess without sinus (principal); J44.9 Chronic obstructive pulmonary disease, unspecified; F17.210 Nicotine dependence, cigarettes, uncomplicated; Z86.16 Personal history of COVID-19; Z98.890 Other specified postprocedural states; Z98.51 Tubal ligation status; Z88.8 Allergy status to other drugs, medicaments and biological substances

== ENCOUNTER → 2025-06-21 | Outpatient (CLI) | payer OTHER ==
[~2025-06-21] MED LIST changes: +AMOX-CLAV 875-1 EACH PO
== END | disposition home or self-care (01) ==
LOC: ORTHO 02:34
PROVIDERS: ATTEND Orthopaedic Surgery
DX: Z47.1 Aftercare following joint replacement surgery (principal); Z96.652 Presence of left artificial knee joint; M25.562 Pain in left knee

== ENCOUNTER 2025-07-18 10:39 | Emergency (ER) | payer OTHER ==
[~2025-07-18] VITALS: Ht 160 cm; Wt 68.0 kg
[2025-07-18 10:50] VITALS: BP 135/52
[2025-07-18] MEDS ORDERED: GUAIFENESIN AC473 M1 PO (11:12)
[2025-07-18] MEDS ORDERED: AMOX-CLAV 875-1 EACH PO (11:12)
[2025-07-18] MEDS ORDERED: VENT7GM INH (11:12)
[2025-07-18] MEDS ORDERED: PREDNISONE20 M1 PO (11:12)
[2025-07-18 11:29] VITALS: BP 132/85
== END 2025-07-18 11:38 | disposition home or self-care (01) ==
LOC: ED 10:39
DX: J32.9 Chronic sinusitis, unspecified (principal); J40 Bronchitis, not specified as acute or chronic; J44.9 Chronic obstructive pulmonary disease, unspecified; Z98.890 Other specified postprocedural states; Z88.8 Allergy status to other drugs, medicaments and biological substances; Z86.16 Personal history of COVID-19